=== PATIENT | male | born 1980 | race Two or more races ===

== ENCOUNTER 2017-08-27 10:42 | Emergency (ER) | payer OTHER ==
[~2017-08-27] VITALS: Ht 177.8 cm; Wt 95.3 kg
[~2017-08-27 10:42] MED LIST: ORPH100T PO; PERCOCET 5/321 UDTAB PO
== END 2017-08-27 16:19 | disposition home or self-care (01) ==
LOC: ER 10:42
DX: M54.5 Low back pain (principal)

== ENCOUNTER 2018-10-22 11:34 | Emergency (ER) | payer OTHER ==
[~2018-10-22] VITALS: Ht 177.8 cm; Wt 98.9 kg
[2018-10-22] MEDS ORDERED: AMOXICILLIN500 MG PO (11:47)
== END 2018-10-22 14:01 | disposition home or self-care (01) ==
LOC: ER 11:34
DX: K29.70 Gastritis, unspecified, without bleeding (principal); B34.9 Viral infection, unspecified

== ENCOUNTER 2021-08-13 08:51 | Emergency (ER) | payer OTHER ==
[~2021-08-13] VITALS: Ht 157.5 cm; Wt 90.7 kg
[~2021-08-13 08:51] MED LIST changes: +AMOXICILLIN500 MG PO
[2021-08-13] MEDS ORDERED: PEPCID AC20 MG PO (08:58)
== END 2021-08-13 09:52 | disposition home or self-care (01) ==
LOC: ER 08:51
DX: M54.59 Other low back pain (principal)

== ENCOUNTER 2021-08-24 07:49 | Emergency (ER) | payer OTHER ==
[~2021-08-24] VITALS: Ht 180.3 cm; Wt 90.7 kg
[~2021-08-24 07:49] MED LIST changes: +PEPCID AC20 MG PO
[2021-08-24] MEDS ORDERED: MECLIZINE HCL25 MG PO (11:08)
== END 2021-08-24 12:52 | disposition home or self-care (01) ==
LOC: ER 07:49
DX: R42 Dizziness and giddiness (principal)

== ENCOUNTER 2022-08-24 15:28 | Emergency (ER) | payer OTHER ==
[~2022-08-24] VITALS: Ht 180.3 cm; Wt 91.2 kg
[~2022-08-24 15:28] MED LIST changes: +MECLIZINE HCL25 MG PO
[2022-08-24] MEDS ORDERED: KETO10TA2 PO (20:26)
== END 2022-08-24 21:05 | disposition home or self-care (01) ==
LOC: ER 15:28
DX: M79.642 Pain in left hand (principal)